=== PATIENT | male | born 1995 | race Hispanic/Latino ===

== ENCOUNTER 2018-04-20 09:27 | Emergency (ER) | payer BC, SELFPAY ==
--- OUTSIDE RECORDS SUMMARY | 2018-04-20 09:29 | XMS REPORT ---
:1995 Author Organization [facility] Address [facility] Joshi [address] [place] [id number] Care Team Providers Name Role Phone Unavailable Unavailable Unavailable Problems This patient has no known problems. Allergies, Adverse Reactions, Alerts This patient has no known allergies or adverse reactions. Medications This patient has no known medications.
[2018-04-20 10:07] LABS: Absolute Lymphocytes (CBC) 2.8 K/uL (0.7-4.9); Absolute Monocytes 0.6 K/uL (0.1-1.3); Absolute Neutrophil 4.5 K/uL (1.8-8.0); Basophils % 0.4 % (0-1.3); Eosinophils % 1.8 % (0-4.4); Hematocrit 44.7 % (39.6-49.0); Lymphocytes % 34.7 % (15.3-44.8); MPV 10.6 fL (7.6-11.3); RBC Red Blood Cell Count 5.07 M/uL (4.33-5.43)
[2018-04-20 10:10] LABS: Protime INR 1.07
[2018-04-20 10:25] LABS: ALT/SGPT 21 U/L (12-78); AST/SGOT 12 U/L (15-37); Albumin 4.4 g/dL (3.4-5.0); Alkaline Phosphatase 96 U/L (45-117); BUN Blood Urea Nitrogen 21 mg/dL (7-18); Bicarbonate 28 mmol/L (21-32); Bilirubin Direct 0.1 mg/dL (0-0.2); Bilirubin Total 0.6 mg/dL (0.2-1.0); Glucose Level 81 mg/dL (74-106); Magnesium 2.4 mg/dL (1.8-2.4); NT PRO-BNP 32 pg/mL (<125); Potassium 3.5 mmol/L (3.5-5.1); Sodium Level 139 mmol/L (136-145); Troponin (Emerg Dept Use Only) < 0.02 ng/mL (0.0-0.045)
--- NOTE | 2018-04-20 11:20 | RAD REPORT ---
EXAM DESCRIPTION: RAD - Chest Single View - 04/20/2018 10:28 am CLINICAL HISTORY: Left-sided chest pain COMPARISON: April 2016 TECHNIQUE: AP portable chest image was obtained 1019 hours . FINDINGS: Lungs are clear. Heart and vasculature are normal. No measurable pleural effusion and no p neumothorax. No acute bony abnormality seen. No acute aortic findings suspected. IMPRESSION: No acute cardiopulmonary process. No suspicious change from comparison.
--- NOTE | 2018-04-20 12:03 | ER ---
Nurse's Notes [facility] Name: Kendell Russo Age: 23 yrs Sex: Male : 1995 Arrival Date: 04/20/2018 Time: 09:31 Bed 8 Private MD: Diagnosis: Other chest pain;Chest pain, unspecified Presentation: 04/20 09:39 Presenting complaint: Patient states: L sided chest pain that radiates to back x 2 ph months, describes as sharp and stabbing, reports palpations, dizziness, and near syncope last night. Transition of care: patient was not received from another setting of care. Onset of symptoms was April 20, 2018. Risk Assessment: Do you want to hurt yourself or someone else? Patient reports no desire to harm self or others. Initial Sepsis Screen: Does the patient meet any 2 criteria? No. Patient's initial sepsis screen is negative. Does the patient have a suspected source of infection? No. Patient's initial sepsis screen is negative. Care prior to arrival: None. 09:39 Method Of Arrival: Ambulatory ph 09:39 Acuity: MARKOS 3 ph Historical: - Allergies: 09:41 jalapenos; ph 09:41 Morphine; ph - Home Meds: 09:41 None [Active]; ph - PMHx: 09:41 None; ph - PSHx: 09:41 Appendectomy; ph - Immunization history:: Adult Immunizations unknown. - Social history:: Smoking status: Patient uses tobacco products, smokes one-half pack cigarettes per day, vapes, Patient/guardian denies using alcohol, street drugs. - Ebola Screening: : No symptoms or risks identified at this time. Screenin:41 Abuse screen: Denies threats or abuse. Denies injuries from another. Nutritional sv screening: No deficits noted. Tuberculosis screening: No symptoms or risk factors identified. Fall Risk None identified. Assessment: 09:35 General: Appears in no apparent distress. comfortable, slender, well developed, sv Behavior is calm, cooperative, appropriate for age. General: Denies drinking energy drinks, pt stated that he used to smoke 1 ppd and decreased to 4 cigarettes' within the last 2 weeks. Pain: Complains of pain in anterior aspect of left upper chest Pain radiates to back Quality of pain is described as sharp, Pain began "months ago" Is intermittent. Neuro: Level of Consciousness is awake, alert, obeys commands, Oriented to person, place, time, situation, Moves all extremities. Full function Gait is steady, Speech is normal. Cardiovascular: Heart tones S1 S2 present Patient's skin is warm and dry. Pulses are 3+ in right radial artery and left radial artery Rhythm is sinus bradycardia. Respiratory: Airway is patent Respiratory effort is even, unlabored, Respiratory pattern is regular, symmetrical, Breath sounds are clear bilaterally. Derm: Skin is pink, warm \\T\\ dry. 10:08 Reassessment: Patient appears in no apparent distress at this time. No changes from previously documented assessment. Patient and/or family updated on plan of care and expected duration. Pain level reassessed. Patient is alert, oriented x 3, equal unlabored respirations, skin warm/dry/pink. Vital Signs: 09:40 BP 121 / 58; Pulse 51; Resp 18; Temp 97.8; Pulse Ox 100% on R/A; Weight 68.04 kg; ph Height 6 ft. 1 in. (185.42 cm); Pain 6/10; 10:08 BP 124 / 87; Pulse 53; Resp 16; Pulse Ox 99% ; sv 11:19 BP 111 / 71; Pulse 55; Resp 14; Pulse Ox 97% ; sv 09:40 Body Mass Index 19.79 (68.04 kg, 185.42 cm) ph ED Course: 09:31 Patient arrived in ED. mr 09:40 Deena Murguia, RN is Primary Nurse. sv 09:40 Jovan Nava MD is Attending Physician. kdr 09:40 Triage completed. ph 09:40 Arm band placed on Patient placed in an exam room, on a stretcher. sv 09:41 Patient has correct armband on for positive identification. Placed in gown. Bed in low sv position. Call light in reach. Adult w/ patient. athletic monitor on. Pulse ox on. NIBP on. Door closed. Head of bed elevated. 09:47 ED physician to see patient. sv 09:48 EKG done, by hydrological technical officer. reviewed by Jovan Nava MD. sm3 09:54 Initial lab(s) drawn, by ut, sent to lab. Inserted saline lock: 20 gauge in right sv antecubital area, using aseptic technique. Blood collected. Flushed right antecubital with 5 ml normal saline. Patient maintains SpO2 saturation greater than 95% on room air. 09:57 Awaiting for x-ray. sv 09:58 Basic Metabolic Panel Sent. sv 10:12 X-ray(s) taken. sv 10:21 X-ray completed. Portable x-ray completed in exam room. Patient tolerated procedure sg4 well. 10:28 XRAY Chest (1 view) In Process Unspecified. EDMS 11:20 Awaiting radiology results. sv 12:58 No provider procedures requiring assistance completed. IV discontinued, intact, ss bleeding controlled, No redness/swelling at site. Pressure dressing applied. Administered Medications: No medications were administered Outcome: 12:02 Discharge ordered by . kdr 12:58 Discharged to home ambulatory, with significant other. ss 12:58 Condition: good 12:58 Discharge instructions given to patient, family, Instructed on discharge instructions, follow up and referral plans. medication usage, Demonstrated understanding of instructions, follow-up care, medications, Prescriptions given X 2. 12:58 Patient left the ED. ss Signatures: Dispatcher [employer] EDDeena Del Valle RN RN Jovan Nava MD MD kdr Rivera, Mary mr Janneth Valenzuela RN RN ss Trinidad Richards RN RN Caroline Castillo 3 Roselia Dupont sg4 Corrections: (The following items were deleted from the chart) 09:46 09:35 Pain: Complains of pain in anterior aspect of left upper chest Pain does not sv radiate. Quality of pain is described as sharp, Pain began "months ago" Is intermittent, sv
--- NOTE | 2018-04-20 12:03 | EDPHYS ---
Physician Documentation [facility] Name: Kendell Russo Age: 23 yrs Sex: Male : 1995 Arrival Date: 04/20/2018 Time: 09:31 Bed 8 Private MD: ED Physician Jovan Nava HPI: 04/20 10:02 This 23 yrs old Male presents to ER via Ambulatory with complaints of Chest kdr Pain. 10:02 The patient or guardian reports chest pain that is located primarily in the substernal kdr area, anterior chest wall, left. The pain radiates to back. Associated signs and symptoms: Pertinent positives: dizziness, lightheadedness, nausea, near-syncope, shortness of breath, Pertinent negatives: cough, diaphoresis, headache, lower extremity pain, lower extremity swelling, palpitations, recent travel, syncope, vomiting. The chest pain is described as aching, sharp. Duration: The patient or guardian reports multiple episodes, that are intermittent, that wax and wane, with no pattern. Historical: - Allergies: 09:41 jalapenos; ph 09:41 Morphine; ph - Home Meds: 09:41 None [Active]; ph - PMHx: 09:41 None; ph - PSHx: 09:41 Appendectomy; ph - Immunization history:: Adult Immunizations unknown. - Social history:: Smoking status: Patient uses tobacco products, smokes one-half pack cigarettes per day, vapes, Patient/guardian denies using alcohol, street drugs. - Ebola Screening: : No symptoms or risks identified at this time. ROS: 10:10 Constitutional: Negative for fever, chills, and weight loss, Eyes: Negative for injury, kdr pain, redness, and discharge, Neck: Negative for injury, pain, and swelling, Respiratory: Negative for shortness of breath, cough, wheezing, and pleuritic chest pain, Abdomen/GI: Negative for abdominal pain, nausea, vomiting, diarrhea, and constipation, Back: Negative for injury and pain, : Negative for injury, bleeding, discharge, and swelling, Skin: Negative for injury, rash, and discoloration, Neuro: Negative for headache, weakness, numbness, tingling, and seizure activity. Psych: Negative for depression, anxiety, suicide ideation, homicidal ideation, and hallucinations, Allergy/Immunology: Negative for hives, rash, and allergies, Endocrine: Negative for neck swelling, polydipsia, polyuria, polyphagia, and marked weight changes, Hematologic/Lymphatic: Negative for swollen nodes, abnormal bleeding, and unusual bruising. 10:10 Cardiovascular: Positive for chest pain, edema, orthopnea, palpitations. Exam: 10:10 Constitutional: This is a well developed, well nourished patient who is awake, alert, kdr and in no acute distress. Head/Face: Normocephalic, atraumatic. Eyes: Pupils equal round and reactive to light, extra-ocular motions intact. Lids and lashes normal. Conjunctiva and sclera are non-icteric and not injected. Cornea within normal limits. Periorbital areas with no swelling, redness, or edema. Neck: Trachea midline, no thyromegaly or masses palpated, and no cervical lymphadenopathy. Supple, full range of motion without nuchal rigidity, or vertebral point tenderness. No Meningismus. Chest/axilla: Normal chest wall appearance and motion. Nontender with no deformity. No lesions are appreciated. Cardiovascular: Regular rate and rhythm with a normal S1 and S2. No gallops, murmurs, or rubs. Normal PMI, no JVD. No pulse deficits. Respiratory: Lungs have equal breath sounds bilaterally, clear to auscultation and percussion. No rales, rhonchi or wheezes noted. No increased work of breathing, no retractions or nasal flaring. Abdomen/GI: Soft, non-tender, with normal bowel sounds. No distension or tympany. No guarding or rebound. No evidence of tenderness throughout. Back: No spinal tenderness. No costovertebral tenderness. Full range of motion. Skin: Warm, dry with normal turgor. Normal color with no rashes, no lesions, and no evidence of cellulitis. MS/ Extremity: Pulses equal, no cyanosis. Neurovascular intact. Full, normal range of motion. Neuro: Awake and alert, GCS 15, oriented to person, place, time, and situation. Cranial nerves II-XII grossly intact. Motor strength 5/5 in all extremities. Sensory grossly intact. Cerebellar exam normal. Normal gait. Psych: Awake, alert, with orientation to person, place and time. Behavior, mood, and affect are within normal limits. Vital Signs: 09:40 BP 121 / 58; Pulse 51; Resp 18; Temp 97.8; Pulse Ox 100% on R/A; Weight 68.04 kg; ph Height 6 ft. 1 in. (185.42 cm); Pain 6/10; 10:08 BP 124 / 87; Pulse 53; Resp 16; Pulse Ox 99% ; sv 11:19 BP 111 / 71; Pulse 55; Resp 14; Pulse Ox 97% ; sv 09:40 Body Mass Index 19.79 (68.04 kg, 185.42 cm) ph MDM: 10:10 Data reviewed: vital signs, nurses notes, lab test result(s), EKG, radiologic studies. kdr Counseling: I had a detailed discussion with the patient and/or guardian regarding: the historical points, exam findings, and any diagnostic results supporting the discharge/admit diagnosis, lab results, radiology results. 12:02 Patient medically screened. kdr 04/20 09:44 Order name: Basic Metabolic Panel kdr 04/20 09:44 Order name: CBC with Diff; Complete Time: 10:51 kdr 04/20 09:44 Order name: LFT's; Complete Time: 10:51 kdr 04/20 09:44 Order name: Magnesium; Complete Time: 10:51 kdr 04/20 09:44 Order name: NT PRO-BNP; Complete Time: 10:51 kdr 04/20 09:44 Order name: PT-INR; Complete Time: 10:51 kdr 04/20 09:40 Order name: EKG; Complete Time: 09:40 sv 04/20 09:40 Order name: EKG - Nurse/Tech; Complete Time: 09:40 sv 04/20 09:44 Order name: Troponin (emerg Dept Use Only); Complete Time: 10:51 kdr 04/20 09:44 Order name: XRAY Chest (1 view); Complete Time: 12:01 kdr 04/20 09:44 Order name: Cardiac monitoring; Complete Time: 09:46 kdr 04/20 09:44 Order name: IV Saline Lock; Complete Time: 09:58 kdr 04/20 09:44 Order name: Labs collected and sent; Complete Time: 09:58 kdr 04/20 09:44 Order name: Basic Metabolic Panel; Complete Time: 10:51 EDMS 04/20 09:44 Order name: O2 Per Protocol; Complete Time: 09:46 kdr 04/20 09:44 Order name: O2 Sat Monitoring; Complete Time: 09:46 kdr Administered Medications: No medications were administered Disposition: 04/20/18 12:02 Discharged to Home. Impression: Other chest pain, Chest pain, unspecified. - Condition is Stable. - Discharge Instructions: Chest Wall Pain, [id number], Nonspecific Chest Pain, [id number]. - Prescriptions for Ibuprofen 800 mg Oral Tablet - take 1 tablet by ORAL route every 12 hours As needed take with food; 20 tablet. Tramadol 50 mg Oral Tablet - take 1 tablet by ORAL route every 8 hours as needed; 12 tablet. - Medication Reconciliation Form, Thank You Letter, Prescription Opioid Use form. - Follow up: Private Physician; When: 2 - 3 days; Reason: If symptoms return, Further diagnostic work-up, Recheck today's complaints, Continuance of care, Re-evaluation by your physician. - Problem is an ongoing problem. - Symptoms have improved. Signatures: Dispatcher [employer] Deena Cano RN RN Jovan Nava MD MD [facility] Janneth Valenzuela RN RN ss Trinidad Richards RN RN ph Corrections: (The following items were deleted from the chart) 12:58 12:02 04/20/2018 12:02 Discharged to Home. Impression: Other chest pain; Chest pain, ss unspecified. Condition is Stable. Forms are Medication Reconciliation Form, Thank You Letter, Antibiotic Education, Prescription Opioid Use. Follow up: Private Physician; When: 2 - 3 days; Reason: If symptoms return, Further diagnostic work-up, Recheck today's complaints, Continuance of care, Re-evaluation by your physician. Problem is an ongoing problem. Symptoms have improved. kdr
--- NOTE | 2018-04-20 12:43 | EKG ---
Test Date: 2018-04-20 Test Time: 09:40:43 Vice President Process: WILLIAM MEASUREMENT RESULTS: Intervals: Rate: 49 KS: 142 QRSD: 98 QT: 430 QTc: 388 [place]: P: 36 KS: 142 QRS: 91 T: 67 INTERPRETIVE STATEMENTS: Sinus bradycardia Rightward axis Borderline ECG Compared to ECG 05/15/2016 11:36:19 Sinus rhythm no longer present Electronically Signed On 04-20-18 12:38:07 DIGESTER CAPPER by Saúl Vinson
== END 2018-04-20 12:58 | disposition home or self-care (01) ==
LOC: ER 09:27
DX: R07.9 Chest pain, unspecified (principal); F17.210 Nicotine dependence, cigarettes, uncomplicated
CPT/HCPCS: 36415; 71045; 80048; 80076; 83735; 83880; 84484; 85025; 85610; 93005; 99285

== ENCOUNTER 2018-06-16 22:55 | Emergency (ER) | payer BC ==
--- OUTSIDE RECORDS SUMMARY | 2018-06-16 22:56 | XMS REPORT ---
:1995 [facility] Address [address] [place] [address] Dr. Joshi [address] [place] [id number] Care Team Providers Name Role Phone Unavailable Unavailable Unavailable Problems This patient has no known problems. Allergies, Adverse Reactions, Alerts This patient has no known allergies or adverse reactions. Medications This patient has no known medications.
[2018-06-16 23:32] LABS: Absolute Lymphocytes (CBC) 1.9 K/uL (0.7-4.9); Absolute Monocytes 0.5 K/uL (0.1-1.3); Absolute Neutrophil 4.9 K/uL (1.8-8.0); Basophils % 0.5 % (0-1.3); Eosinophils % 1.1 % (0-4.4); Hematocrit 46.1 % (39.6-49.0); Lymphocytes % 26.1 % (15.3-44.8); MPV 10.1 fL (7.6-11.3); Monocytes % 6.7 % (3.3-12.3); RBC Red Blood Cell Count 5.25 M/uL (4.33-5.43)
[2018-06-16] MEDS ORDERED: LORazepam 2 MG/ML VIAL ONE (23:32)
[2018-06-17 00:01] LABS: BUN Blood Urea Nitrogen 9 mg/dL (7-18); Bicarbonate 27 mmol/L (21-32); Glucose Level 99 mg/dL (74-106); Magnesium 2.2 mg/dL (1.8-2.4); Potassium 3.3 mmol/L (3.5-5.1); Sodium Level 144 mmol/L (136-145)
--- NOTE | 2018-06-17 00:31 | ER ---
Nurse's Notes [facility] Name: Shaan Russo Age: 23 yrs Sex: Male : 1995 Arrival Date: 06/16/2018 Time: 22:56 Bed 18 Private MD: Diagnosis: Dizziness and giddiness;Paresthesia of skin Presentation: 06/16 22:56 Presenting complaint: Patient states: dizziness intermittently x 2 days, ears feel tl2 muffled at times. 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 Denies any changes with palpitations or chronic pain. Transition of care: patient was not received from another setting of care. Onset of symptoms was June 14, 2018. Risk Assessment: Do you want to hurt yourself or someone else? Patient reports no desire to harm self or others. Initial Sepsis Screen: Does the patient meet any 2 criteria? No. Patient's initial sepsis screen is negative. Does the patient have a suspected source of infection? No. Patient's initial sepsis screen is negative. Care prior to arrival: None. 22:56 Method Of Arrival: EMS: [facility] tl2 22:56 Acuity: MARKOS 3 tl2 Triage Assessment: 22:59 General: Appears in no apparent distress. uncomfortable, Behavior is cooperative, tl2 appropriate for age, anxious. Pain: Denies pain. Neuro: Level of Consciousness is awake, alert, obeys commands, Oriented to person, place, time, situation. Cardiovascular: Reports palpitations, Denies chest pain. Respiratory: Airway is patent Respiratory effort is even, unlabored, Respiratory pattern is regular, symmetrical. GI: No signs and/or symptoms were reported involving the gastrointestinal system. : No signs and/or symptoms were reported regarding the genitourinary system. Derm: Skin is pink, warm \T\ dry. Historical: - Allergies: 22:59 Morphine; tl2 - Home Meds: 22:59 None [Active]; tl2 - PMHx: 22:59 palpitations (being monitored by trucking supervisor); tl2 - PSHx: 22:59 Appendectomy; tl2 - Immunization history:: Adult Immunizations up to date. - Social history:: Smoking status: Patient/guardian denies using tobacco. - Ebola Screening: : No symptoms or risks identified at this time. Screenin:00 Abuse screen: Denies threats or abuse. Nutritional screening: No deficits noted. tl2 Tuberculosis screening: No symptoms or risk factors identified. Fall Risk None identified. Assessment: 23:00 General: see triage assessment. tl2 23:38 Reassessment: Patient appears in no apparent distress at this time. Patient and/or tl2 family updated on plan of care and expected duration. Pain level reassessed. Patient is alert, oriented x 3, equal unlabored respirations, skin warm/dry/pink. pt returned from CT. 06/17 00:53 Reassessment: Patient appears in no apparent distress at this time. Patient and/or tl2 family updated on plan of care and expected duration. Pain level reassessed. Patient is alert, oriented x 3, equal unlabored respirations, skin warm/dry/pink. pt and family verbalized understanding of discharge instructions, need for follow up, and prescription usage Patient states feeling better. Vital Signs: 06/16 22:59 BP 138 / 75; Pulse 70; Resp 18; Temp 98.5(O); Pulse Ox 100% on R/A; Weight 71.67 kg; tl2 Height 6 ft. 1 in. (185.42 cm); Pain 1/10; 23:51 BP 116 / 67; Pulse 59; Resp 18; Pulse Ox 97% on R/A; tl2 22:59 Body Mass Index 20.85 (71.67 kg, 185.42 cm) tl2 ED Course: 22:56 Patient arrived in ED. tl2 22:56 Arnol Weller PA is [facility]. jr8 22:56 Damion Gamez MD is Attending Physician. jr8 22:58 Triage completed. tl2 22:59 Arm band placed on right wrist. tl2 23:00 Patient has correct armband on for positive identification. Bed in low position. Call tl2 light in reach. Side rails up X 1. Adult w/ patient. 23:18 Belkis Kaminski RN is Primary Nurse. tl2 23:18 Maintain EMS IV. Dressing intact. Good blood return noted. Site clean \T\ dry. Gauge \T\ tl 2 site: 18 g R AC. 23:47 CT Head Brain wo Cont In Process Unspecified. EDMS 06/17 00:00 CT completed. Patient tolerated procedure well. Patient moved to CT via wheelchair. Patient moved back from CT. 00:29 Charles Silevira MD is Referral Physician. jr8 00:51 No provider procedures requiring assistance completed. IV discontinued, intact, jb4 bleeding controlled. Administered Medications: 06/16 23:26 Drug: Ativan 1 mg Route: IVP; Site: right antecubital; tl2 06/17 00:00 Follow up: Response: No adverse reaction; Marked relief of symptoms tl2 Outcome: 00:30 Discharge ordered by . jr8 00:51 Discharged to home via wheelchair, with family. jb4 00:51 Condition: stable 00:51 Discharge instructions given to family, significant other, Instructed on discharge instructions, follow up and referral plans. medication usage, Demonstrated understanding of instructions, follow-up care, medications, Prescriptions given X 1. 00:55 Patient left the ED. tl2 Signatures: Dispatcher [employer] EDMS Bimal Ricks Josh, PA PA jr8 Belkis Kaminski, RN RN tl2 Burton Crespo, RN RN jb4
--- NOTE | 2018-06-17 00:31 | EDPHYS ---
Physician Documentation [facility] Name: Shaan Russo Age: 23 yrs Sex: Male : 1995 Arrival Date: 06/16/2018 Time: 22:56 Bed 18 Private MD: ED Physician Damion Gamez HPI: 06/16 23:37 This 23 yrs old Male presents to ER via EMS with complaints of Dizziness. jr8 23:37 Onset: The symptoms/episode began/occurred acutely, 2 day(s) ago, and became worse. jr8 Context: occurred at home, occurred while the patient was at rest, just prior to the episode the patient experienced numbness. Modifying factors: The symptoms are alleviated by nothing, the symptoms are aggravated by nothing. Associated signs and symptoms: Pertinent positives: nausea, numbness. Severity of symptoms: At their worst the symptoms were moderate in the emergency department the symptoms have improved. Patient's baseline: Neuro: alert and fully oriented, Motor: no deficits, Ambulation: walks without assistance, Speech: normal. The patient has not experienced similar symptoms in the past. The patient has not recently seen a physician. 23:37 Patient stated that he felt like he would have numbness to face and head and then feel jr8 very dizzy and near syncopal like. Stated that at points he would feel numb throughout his body as well. Denies CP or shortness of breath . 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 - Social history:: Smoking status: Patient/guardian denies using tobacco. - Ebola Screening: : No symptoms or risks identified at this time. ROS: 23:37 Eyes: Negative for injury, pain, redness, and discharge, ENT: Negative for injury, jr8 pain, and discharge, Neck: Negative for injury, pain, and swelling, Cardiovascular: Negative for chest pain, palpitations, and edema, Respiratory: Negative for shortness of breath, cough, wheezing, and pleuritic chest pain, Back: Negative for injury and pain, MS/Extremity: Negative for injury and deformity, Skin: Negative for injury, rash, and discoloration. 23:37 Abdomen/GI: Positive for nausea, Negative for abdominal pain, vomiting, diarrhea, constipation, abdominal cramps, abdominal distension. 23:37 Neuro: Positive for dizziness, numbness, visual changes. Exam: 23:37 Eyes: Pupils equal round and reactive to light, extra-ocular motions intact. Lids and jr8 lashes normal. Conjunctiva and sclera are non-icteric and not injected. Cornea within normal limits. Periorbital areas with no swelling, redness, or edema. ENT: Nares patent. No nasal discharge, no septal abnormalities noted. Tympanic membranes are normal and external auditory canals are clear. Oropharynx with no redness, swelling, or masses, exudates, or evidence of obstruction, uvula midline. Mucous membranes moist. Neck: Trachea midline, no thyromegaly or masses palpated, and no cervical lymphadenopathy. Supple, full range of motion without nuchal rigidity, or vertebral point tenderness. No Meningismus. Cardiovascular: Regular rate and rhythm with a normal S1 and S2. No gallops, murmurs, or rubs. Normal PMI, no JVD. No pulse deficits. Respiratory: Lungs have equal breath sounds bilaterally, clear to auscultation and percussion. No rales, rhonchi or wheezes noted. No increased work of breathing, no retractions or nasal flaring. Abdomen/GI: Soft, non-tender, with normal bowel sounds. No distension or tympany. No guarding or rebound. No evidence of tenderness throughout. Back: No spinal tenderness. No costovertebral tenderness. Full range of motion. Skin: Warm, dry with normal turgor. Normal color with no rashes, no lesions, and no evidence of cellulitis. MS/ Extremity: Pulses equal, no cyanosis. Neurovascular intact. Full, normal range of motion. Neuro: Awake and alert, GCS 15, oriented to person, place, time, and situation. Cranial nerves II-XII grossly intact. Motor strength 5/5 in all extremities. Sensory grossly intact. Cerebellar exam normal. Normal gait. Vital Signs: 22:59 BP 138 / 75; Pulse 70; Resp 18; Temp 98.5(O); Pulse Ox 100% on R/A; Weight 71.67 kg; tl2 Height 6 ft. 1 in. (185.42 cm); Pain 1/10; 23:51 BP 116 / 67; Pulse 59; Resp 18; Pulse Ox 97% on R/A; tl2 22:59 Body Mass Index 20.85 (71.67 kg, 185.42 cm) tl2 MDM: 22:56 Patient medically screened. 8 06/17 00:29 Data reviewed: vital signs, nurses notes, lab test result(s), EKG, radiologic studies, 8 CT scan, and as a result, I will discharge patient. Data interpreted: Pulse oximetry: on room air is 97 %. Interpretation: normal. Counseling: I had a detailed discussion with the patient and/or guardian regarding: the historical points, exam findings, and any diagnostic results supporting the discharge/admit diagnosis, lab results, radiology results, the need for outpatient follow up, a neurologist, to return to the emergency department if symptoms worsen or persist or if there are any questions or concerns that arise at home. Response to treatment: the patient's symptoms have resolved after treatment. 06/16 23:16 Order name: CBC with Diff; Complete Time: 23:37 [facility] 06/16 23:16 Order name: Basic Metabolic Panel; Complete Time: 00:03 [facility] 06/16 23:16 Order name: TSH; Complete Time: 00:03 [facility] 06/16 23:16 Order name: Magnesium; Complete Time: 00:03 [facility] 06/16 23:16 Order name: CT Head Brain wo Cont 8 06/16 23:16 Order name: EKG - Nurse/Tech; Complete Time: 23:19 8 06/16 23:16 Order name: IV; Complete Time: 23:19 [facility] Administered Medications: 06/16 23:26 Drug: Ativan 1 mg Route: IVP; Site: right antecubital; tl2 06/17 00:00 Follow up: Response: No adverse reaction; Marked relief of symptoms tl2 Disposition: 06:10 Co-signature as Attending Physician, Damion Gamez MD I agree with the assessment and 4 plan of care. Disposition: 06/17/18 00:30 Discharged to Home. Impression: Dizziness and giddiness, Paresthesia of skin. - Condition is Stable. - Discharge Instructions: Panic Attacks, Dizziness, Paresthesia, Social Anxiety Disorder, Generalized Anxiety Disorder. - Prescriptions for Hydroxyzine HCl 50 mg Oral Tablet - take 1 tablet by ORAL route every 8 hours As needed; 20 tablet. - Medication Reconciliation Form, Thank You Letter, Antibiotic Education, Prescription Opioid Use, Work release form form. - Follow up: Charles Silveira MD; When: 1 week; Reason: Recheck today's complaints, Continuance of care, Re-evaluation by your physician. - Problem is new. - Symptoms have improved. Signatures: Dispatcher [employer] EDMS Arnol Weller PA PA jr8 Belkis Kaminski RN RN tl2 Damion Gamez MD MD tw4 Corrections: (The following items were deleted from the chart) 00:55 00:30 06/17/2018 00:30 Discharged to Home. Impression: Dizziness and giddiness; tl2 Paresthesia of skin. Condition is Stable. Forms are Medication Reconciliation Form, Thank You Letter, Antibiotic Education, Prescription Opioid Use. Follow up: Charles Silveira; When: 1 week; Reason: Recheck today's complaints, Continuance of care, Re-evaluation by your physician. Problem is new. Symptoms have improved. jr8
--- NOTE | 2018-06-17 08:44 | EKG ---
Test Date: 2018-06-16 Test Time: 23:19:57 Gripper Attacher: CASS MEASUREMENT RESULTS: Intervals: Rate: 70 WV: 134 QRSD: 102 QT: 386 QTc: 416 Heron: P: 15 WV: 134 QRS: 95 T: 53 INTERPRETIVE STATEMENTS: Normal sinus rhythm with sinus arrhythmia Rightward axis Nonspecific ST abnormality Abnormal ECG Compared to ECG 04/20/2018 09:40:43 ST (T wave) deviation now present Sinus bradycardia no longer present Electronically Signed On 06-17-18 08:43:33 MARKETING/SALES PERSON by Chris Lance
--- NOTE | 2018-06-17 10:47 | RAD REPORT ---
EXAM DESCRIPTION: CT - Head Brain Wo Cont - 06/17/2018 4:37 am CLINICAL HISTORY: Dizziness. COMPARISON: None. TECHNIQUE: CT scan of the brain without IV contrast. This exam was performed according to our depa rtmental dose-optimization program, which includes automated exposure control, adjustment of the mA a nd/or kV according to patient size and/or use of iterative reconstruction technique. FINDINGS: The ventricles, cisterns, and sulci are unremarkable. No focal white matter lesions are se en. No evidence of acute infarction, intracranial hemorrhage, extra-axial fluid collection, or midlin e shift. No air-fluid levels are seen in the paranasal sinuses to suggest acute sinusitis. No depress ed skull fracture. IMPRESSION: No acute intracranial findings. Electronically signed by: Sharif Salazar MD 06/16/2018 11:53 PM BOOKING MANAGER Due to temporary technical issues with the PACS/Fluency reporting system, reports are being signed by the in house radiologist as a courtesy to ensure prompt reporting. The interpreting radiologist is f ully responsible for the content of the report.
== END 2018-06-17 00:55 | disposition home or self-care (01) ==
LOC: ER 22:55
DX: R20.2 Paresthesia of skin (principal); Z88.5 Allergy status to narcotic agent
CPT/HCPCS: 36415; 70450; 80048; 83735; 84443; 85025; 93005; 96374; 99284

== ENCOUNTER 2018-08-20 23:31 | Emergency (ER) | payer BC ==
--- OUTSIDE RECORDS SUMMARY | 2018-08-20 23:34 | XMS REPORT ---
:1995 [facility] Address [address] [place] [address] Dr. Joshi [address] [place] [id number] Care Team Providers Name Role Phone Unavailable Unavailable Unavailable Problems This patient has no known problems. Allergies, Adverse Reactions, Alerts This patient has no known allergies or adverse reactions. Medications This patient has no known medications.
[2018-08-21] MEDS ORDERED: NA CHLORIDE 0.9% 1,000 ML ONE (00:58)
[2018-08-21 01:19] LABS: Absolute Lymphocytes (CBC) 1.8 K/uL (0.7-4.9); Absolute Monocytes 0.4 K/uL (0.1-1.3); Absolute Neutrophil 8.4 K/uL (1.8-8.0); Basophils % 0.3 % (0-1.3); Eosinophils % 0.6 % (0-4.4); Hematocrit 47.5 % (39.6-49.0); MPV 10.8 fL (7.6-11.3); Monocytes % 4.1 % (3.3-12.3); RBC Red Blood Cell Count 5.39 M/uL (4.33-5.43)
[2018-08-21 01:20] LABS: Protime INR 1.02
[2018-08-21 01:32] LABS: Barbiturates NEGATIVE (NEGATIVE); Benzodiazepines NEGATIVE (NEGATIVE); Cocaine NEGATIVE (NEGATIVE); METHAMPHETAM NEGATIVE (NEGATIVE); Methadone NEGATIVE (NEGATIVE); Opiates NEGATIVE (NEGATIVE); Phencyclidine NEGATIVE (NEGATIVE); THC Cannibis NEGATIVE (NEGATIVE)
[2018-08-21 01:33] LABS: ALT/SGPT 19 U/L (12-78); AST/SGOT 16 U/L (15-37); Albumin 5.1 g/dL (3.4-5.0); Alkaline Phosphatase 98 U/L (45-117); BUN Blood Urea Nitrogen 12 mg/dL (7-18); Bicarbonate 29 mmol/L (21-32); Bilirubin Direct 0.2 mg/dL (0-0.2); Bilirubin Total 0.8 mg/dL (0.2-1.0); Glucose Level 92 mg/dL (74-106); Magnesium 2.3 mg/dL (1.8-2.4); NT PRO-BNP 49 pg/mL (<125); Potassium 3.8 mmol/L (3.5-5.1); Protein, Total 8.1 g/dL (6.4-8.2); Sodium Level 142 mmol/L (136-145); Troponin (Emerg Dept Use Only) < 0.02 ng/mL (0.0-0.045)
--- NOTE | 2018-08-21 02:51 | EDPHYS ---
Physician Documentation [facility] Name: Shaan Russo Age: 23 yrs Sex: Male : 1995 Arrival Date: 08/20/2018 Time: 23:39 Bed 13 Private MD: ED Physician Guido Lane HPI: 08/21 00:15 This 23 yrs old Male presents to ER via Ambulatory with complaints of pasha Headache, ADDISON FEELING. 00:15 The patient complains of pain to the top of head, forehead, left side of the back of pasha head, left occipital area, left base of the skull, right frontal area, right side of the back of head, right occipital area and right base of the skull. The patient describes the headache as aching. Onset: The symptoms/episode began/occurred just prior to arrival. Associated signs and symptoms: Pertinent positives: dizziness. Severity of symptoms: At its worst the pain was mild, moderate, in the emergency department the pain is unchanged. Headache History: Denies prior headaches. The symptoms are alleviated by nothing. the symptoms are aggravated by nothing. The patient has not experienced similar symptoms in the past. 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 - Social history:: Smoking status: Patient uses tobacco products, denies chronic smoking, but will smoke occasionally. - Ebola Screening: : Patient negative for fever greater than or equal to 101.5 degrees Fahrenheit, and additional compatible Ebola Virus Disease symptoms Patient denies exposure to infectious person Patient denies travel to an Ebola-affected area in the 21 days before illness onset No symptoms or risks identified at this time. - Family history:: not pertinent. ROS: 08/21 00:15 Constitutional: Negative for fever, chills, and weight loss, Eyes: Negative for injury, pasha pain, redness, and discharge, ENT: Negative for injury, pain, and discharge, Neck: Negative for injury, pain, and swelling, Cardiovascular: Negative for chest pain, palpitations, and edema, Respiratory: Negative for shortness of breath, cough, wheezing, and pleuritic chest pain, Abdomen/GI: Negative for abdominal pain, nausea, vomiting, diarrhea, and constipation, Back: Negative for injury and pain, : Negative for injury, bleeding, discharge, and swelling, MS/Extremity: Negative for injury and deformity, Skin: Negative for injury, rash, and discoloration, Psych: Negative for depression, anxiety, suicide ideation, homicidal ideation, and hallucinations, Allergy/Immunology: Negative for hives, rash, and allergies, Endocrine: Negative for neck swelling, polydipsia, polyuria, polyphagia, and marked weight changes, Hematologic/Lymphatic: Negative for swollen nodes, abnormal bleeding, and unusual bruising. Neuro: Positive for headache. Exam: 00:15 Constitutional: This is a well developed, well nourished patient who is awake, alert, pasha and in no acute distress. Head/Face: Normocephalic, atraumatic. Eyes: Pupils equal round and reactive to light, extra-ocular motions intact. Lids and lashes normal. Conjunctiva and sclera are non-icteric and not injected. Cornea within normal limits. Periorbital areas with no swelling, redness, or edema. ENT: Nares patent. No nasal discharge, no septal abnormalities noted. Tympanic membranes are normal and external auditory canals are clear. Oropharynx with no redness, swelling, or masses, exudates, or evidence of obstruction, uvula midline. Mucous membranes moist. Neck: Trachea midline, no thyromegaly or masses palpated, and no cervical lymphadenopathy. Supple, full range of motion without nuchal rigidity, or vertebral point tenderness. No Meningismus. Chest/axilla: Normal chest wall appearance and motion. Nontender with no deformity. No lesions are appreciated. Cardiovascular: Regular rate and rhythm with a normal S1 and S2. No gallops, murmurs, or rubs. Normal PMI, no JVD. No pulse deficits. Respiratory: Lungs have equal breath sounds bilaterally, clear to auscultation and percussion. No rales, rhonchi or wheezes noted. No increased work of breathing, no retractions or nasal flaring. Abdomen/GI: Soft, non-tender, with normal bowel sounds. No distension or tympany. No guarding or rebound. No evidence of tenderness throughout. Back: No spinal tenderness. No costovertebral tenderness. Full range of motion. Male : Normal genitalia with no discharge or lesions. Skin: Warm, dry with normal turgor. Normal color with no rashes, no lesions, and no evidence of cellulitis. MS/ Extremity: Pulses equal, no cyanosis. Neurovascular intact. Full, normal range of motion. Neuro: Awake and alert, GCS 15, oriented to person, place, time, and situation. Cranial nerves II-XII grossly intact. Motor strength 5/5 in all extremities. Sensory grossly intact. Cerebellar exam normal. Normal gait. Psych: Awake, alert, with orientation to person, place and time. Behavior, mood, and affect are within normal limits. Vital Signs: 08/20 23:44 BP 116 / 77; Pulse 72; Resp 18; Temp 98.8(O); Pulse Ox 96% on R/A; Weight 68.04 kg (R); ed1 Height 6 ft. 1 in. (185.42 cm) (R); Pain 7/10; 08/21 01:00 BP 114 / 70; Pulse 54; Resp 16; Pulse Ox 100% on R/A; jb4 02:15 BP 120 / 75; Pulse 56; Resp 19; Pulse Ox 98% on R/A; jb4 03:06 BP 123 / 78; Pulse 61; Resp 16; Pulse Ox 100% on R/A; jb4 08/20 23:44 Body Mass Index 19.79 (68.04 kg, 185.42 cm) ed1 MDM: 00:02 Patient medically screened. [facility] 00:17 Data reviewed: vital signs, nurses notes, lab test result(s), EKG, radiologic studies. [facility] 08/21 00:15 Order name: Basic Metabolic Panel; Complete Time: 02: [facility] 08/21 00:15 Order name: CBC with Diff; Complete Time: 02: [facility] 08/21 00:15 Order name: LFT's; Complete Time: 02: [facility] 08/21 00:15 Order name: Magnesium; Complete Time: 02: [facility] 08/21 00:15 Order name: NT PRO-BNP; Complete Time: 02:06 [facility] 08/21 00:15 Order name: PT-INR; Complete Time: 02:06 [facility] 08/21 00:15 Order name: Troponin (emerg Dept Use Only); Complete Time: 02: [facility] 08/21 00:15 Order name: XRAY Chest (1 view) [facility] 08/21 00:15 Order name: EKG; Complete Time: 00:16 [facility] 08/21 00:15 Order name: Cardiac monitoring; Complete Time: 00:46 [facility] 08/21 00:15 Order name: CT Head Angio [facility] 08/21 00:15 Order name: UDS; Complete Time: 02:06 [facility] 08/21 01:24 Order name: Urine Dipstick--Ancillary (enter results) cm6 08/21 00:15 Order name: EKG - Nurse/Tech; Complete Time: 00:43 [facility] 08/21 00:15 Order name: IV Saline Lock; Complete Time: 01:07 [facility] 08/21 00:15 Order name: Labs collected and sent; Complete Time: 01:07 [facility] 08/21 00:15 Order name: O2 Per Protocol; Complete Time: 00:46 [facility] 08/21 00:15 Order name: O2 Sat Monitoring; Complete Time: 00:46 [facility] 08/21 00:15 Order name: Urine Dipstick-Ancillary (obtain specimen); Complete Time: 01:08 [facility] Administered Medications: 00:45 Drug: NS 0.9% 1000 ml Route: IV; Rate: 1 bolus; Site: right antecubital; jb4 01:35 Follow up: Response: No adverse reaction; IV Status: Completed infusion jb4 Disposition: 08/21/18 02:50 Discharged to Home. Impression: Headache. - Condition is Stable. - Discharge Instructions: General Headache Without Cause, General Headache Without Cause, [id number]. - Prescriptions for Fioricet with Codeine [id number] [id number] mg Oral capsule - take 1 capsule by ORAL route every 4 hours as needed not to exceed 6 capsules per 24hrs; 20 capsule. - Medication Reconciliation Form, Thank You Letter, Antibiotic Education, Prescription Opioid Use form. - Follow up: Private Physician; When: 2 - 3 days; Reason: Recheck today's complaints, Continuance of care, Re-evaluation by your physician. Follow up: Aaron Macdonald; When: 2 - 3 days; Reason: Recheck today's complaints, Re-evaluation by your physician. - Problem is new. - Symptoms have improved. Signatures: Dispatcher [employer] EDMS Guido Lane MD MD cha Riggs, Erika, RN RN ed1 Burton Crespo RN RN jb4 Corrections: (The following items were deleted from the chart) 00:16 00:15 Family history: pertinent for pasha pasha 03:09 02:50 08/21/2018 02:50 Discharged to Home. Impression: Headache. Condition is Stable. jb4 Discharge Instructions: General Headache Without Cause, General Headache Without Cause, [id number]. Prescriptions for Fioricet with Codeine [id number] mg Oral capsule - take 1 capsule by ORAL route every 4 hours as needed not to exceed 6 capsules per 24hrs; 20 capsule. and Forms are Medication Reconciliation Form, Thank You Letter, Antibiotic Education, Prescription Opioid Use. Follow up: Private Physician; When: 2 - 3 days; Reason: Recheck today's complaints, Continuance of care, Re-evaluation by your physician. Follow up: Aaron Macdonald; When: 2 - 3 days; Reason: Recheck today's complaints, Re-evaluation by your physician. Problem is new. Symptoms have improved. pasha
--- NOTE | 2018-08-21 02:51 | ER ---
Nurse's Notes [facility] Name: Shaan Russo Age: 23 yrs Sex: Male : 1995 Arrival Date: 08/20/2018 Time: 23:39 Bed 13 Private MD: Diagnosis: Headache Presentation: 08/20 23:41 Presenting complaint: Patient states: I have been having headaches but today it got ed1 worse and I have tingling left hand and left foot. Transition of care: patient was not received from another setting of care. Onset of symptoms was August 18, 2018. Risk Assessment: Do you want to hurt yourself or someone else? Patient reports no desire to harm self or others. Initial Sepsis Screen: Does the patient meet any 2 criteria? No. Patient's initial sepsis screen is negative. Does the patient have a suspected source of infection? No. Patient's initial sepsis screen is negative. Care prior to arrival: Medication(s) given: Excedrine. 23:41 Method Of Arrival: Ambulatory ed1 23:41 Acuity: MARKOS 3 ed1 Triage Assessment: 23:44 Headache History: The patient has had previous headaches and this one is different than ed1 previous episodes. General: Appears in no apparent distress. Behavior is calm, cooperative. Pain: Complains of pain in left parietal area Pain currently is 7 out of 10 on a pain scale. Pain began 2-3 days ago. Also complains of no other associated symptoms. Neuro: Level of Consciousness is awake, alert, obeys commands, Oriented to person, place, time, situation, Pony Trimmer are equal bilaterally Reports numbness in left hand and left foot. 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 - Social history:: Smoking status: Patient uses tobacco products, denies chronic smoking, but will smoke occasionally. - Ebola Screening: : Patient negative for fever greater than or equal to 101.5 degrees Fahrenheit, and additional compatible Ebola Virus Disease symptoms Patient denies exposure to infectious person Patient denies travel to an Ebola-affected area in the 21 days before illness onset No symptoms or risks identified at this time. - Family history:: not pertinent. Screenin/04 00:00 Abuse screen: Denies threats or abuse. Nutritional screening: No deficits noted. jb4 Tuberculosis screening: No symptoms or risk factors identified. Fall Risk IV access (20 points). Assessment: 00:00 General: Appears in no apparent distress. comfortable, Behavior is calm, cooperative, jb4 appropriate for age, PT reports feeling a pressure pain in his head and a "karate chop sensation" to the left side of his head when he extends his neck.. Pain: Complains of pain in head, neck Pain does not radiate. Pain currently is 7 out of 10 on a pain scale. Quality of pain is described as pressure, stabbing, throbbing, pulsating, Pain began 2-3 months ago. Is intermittent. Neuro: Level of Consciousness is awake, alert, obeys commands, Oriented to person, place, time, situation. Cardiovascular: Patient's skin is warm and dry. Respiratory: Airway is patent Respiratory effort is even, unlabored, Respiratory pattern is regular, symmetrical. GI: No signs and/or symptoms were reported involving the gastrointestinal system. : No signs and/or symptoms were reported regarding the genitourinary system. EENT: No signs and/or symptoms were reported regarding the EENT system. Derm: Skin is intact, Skin is pink, warm \\T\\ dry. Musculoskeletal: Circulation, motion, and sensation intact. 01:00 Reassessment: Patient appears in no apparent distress at this time. Patient and/or jb4 family updated on plan of care and expected duration. Pain level reassessed. Patient is alert, oriented x 3, equal unlabored respirations, skin warm/dry/pink. 02:00 Reassessment: Patient appears in no apparent distress at this time. Patient and/or jb4 family updated on plan of care and expected duration. Pain level reassessed. Patient is alert, oriented x 3, equal unlabored respirations, skin warm/dry/pink. 03:06 Reassessment: Patient appears in no apparent distress at this time. Patient and/or jb4 family updated on plan of care and expected duration. Pain level reassessed. Patient is alert, oriented x 3, equal unlabored respirations, skin warm/dry/pink. Vital Signs: 08/20 23:44 BP 116 / 77; Pulse 72; Resp 18; Temp 98.8(O); Pulse Ox 96% on R/A; Weight 68.04 kg (R); ed1 Height 6 ft. 1 in. (185.42 cm) (R); Pain 7/10; 05 01:00 BP 114 / 70; Pulse 54; Resp 16; Pulse Ox 100% on R/A; jb4 02:15 BP 120 / 75; Pulse 56; Resp 19; Pulse Ox 98% on R/A; jb4 03:06 BP 123 / 78; Pulse 61; Resp 16; Pulse Ox 100% on R/A; jb4 08/20 23:44 Body Mass Index 19.79 (68.04 kg, 185.42 cm) ed1 ED Course: 08/20 23:39 Patient arrived in ED. es 23:43 Triage completed. ed1 23:44 Arm band placed on right wrist. ed1 23:51 Burton Crespo, LALA is Primary Nurse. jb4 08/21 00:00 Patient has correct armband on for positive identification. Bed in low position. Call jb4 light in reach. Side rails up X 1. tricot knitting machine operator on. Pulse ox on. NIBP on. 00:[address] MD is Attending Physician. pasha 00:30 XRAY Chest (1 view) In Process Unspecified. EDMS 00:30 X-ray completed. Portable x-ray completed in exam room. Patient tolerated procedure kp1 well. 00:30 Initial lab(s) drawn, by ED staff, sent to lab. Inserted saline lock: 20 gauge in right jb4 antecubital area, using aseptic technique. Blood collected. 00:50 Radiology exam delayed due to lab results not completed at this time. (BUN/Creatinine). vm2 01:06 Radiology exam delayed due to lab results not completed at this time. (BUN/Creatinine). kw1 01:32 Radiology exam delayed due to lab results not completed at this time. (BUN/Creatinine). az 02:08 CT Head Angio In Process Unspecified. EDMS 02:50 Aaron Macdonald MD is Referral Physician. pasha 03:06 No provider procedures requiring assistance completed. IV discontinued, intact, jb4 bleeding controlled, No redness/swelling at site. Administered Medications: 00:45 Drug: NS 0.9% 1000 ml Route: IV; Rate: 1 bolus; Site: right antecubital; jb4 01:35 Follow up: Response: No adverse reaction; IV Status: Completed infusion jb4 Outcome: 02:50 Discharge ordered by . pasha 03:08 Discharged to home ambulatory. jb4 03:08 Condition: stable 03:08 Discharge instructions given to patient, Instructed on discharge instructions, follow up and referral plans. medication usage, Demonstrated understanding of instructions, follow-up care, medications, Prescriptions given X 1. 03:09 Patient left the ED. jb4 Signatures: Dispatcher [employer] EDGuido Benavidez MD MD cha Salyer, Isabela Engle RN RN ed1 Burton Crespo RN RN jb4 Mary Oquendo2 Krysten Almendarez 1 Suad Littlejohn 1 Ileana Reynolds Corrections: (The following items were deleted from the chart) 00:16 00:15 Family history: pertinent for pasha pak
[2018-08-21 03:00] LABS: Urine Blood NEGATIVE (NEG); Urine Glucose NEGATIVE (NEG); Urine Protein NEGATIVE (NEG)
--- NOTE | 2018-08-21 06:47 | EKG ---
Test Date: 2018-08-21 Test Time: 00:38:00 Travel Accommodations Rater: CASS MEASUREMENT RESULTS: Intervals: Rate: 48 NJ: 138 QRSD: 94 QT: 434 QTc: 387 [place]: P: 7 NJ: 138 QRS: 91 T: 50 INTERPRETIVE STATEMENTS: Sinus bradycardia Rightward axis Nonspecific ST abnormality Abnormal ECG Compared to ECG 06/16/2018 23:19:57 Sinus rhythm no longer present Sinus arrhythmia no longer present ST (T wave) deviation still present Electronically Signed On 08-21-18 06:46:12 CDT by Saúl Vinson
--- NOTE | 2018-08-21 10:03 | RAD REPORT ---
EXAM DESCRIPTION: Hellen Single View08/21/2018 12:30 am CLINICAL HISTORY: cough COMPARISON: April 2018 FINDINGS: The lungs appear clear of acute infiltrate. The heart is normal size IMPRESSION: No acute abnormalities displayed
--- NOTE | 2018-08-23 12:33 | RAD REPORT ---
EXAM DESCRIPTION: CT - Head angio - 08/21/2018 6:41 am CLINICAL HISTORY: The patient is 23 years old and is Male; HEADACHE TECHNIQUE: Axial computed tomography images of the head with intravenous contrast during the arteria l phase of enhancement. Sagittal and coronal reformatted images were created and reviewed. This C T exam was performed using one or more of the following dose reduction techniques: automated exposu re control, adjustment of the mA and/or kV according to patient size, and/or use of iterative reconst ruction technique. COMPARISON: CT head without contrast dated June 16, 2018. FINDINGS: RIGHT INTERNAL CAROTID ARTERY: No acute findings. Intracranial segment is patent with no significant stenosis. No aneurysm. RIGHT ANTERIOR CEREBRAL ARTERY: Unremarkable. No occlusion or significant stenosis. No aneurys m. RIGHT MIDDLE CEREBRAL ARTERY: Unremarkable. No occlusion or significant stenosis. No aneurysm. RIGHT POSTERIOR CEREBRAL ARTERY: Unremarkable. No occlusion or significant stenosis. No aneury sm. RIGHT VERTEBRAL ARTERY: Unremarkable as visualized. LEFT INTERNAL CAROTID ARTERY: No acute findings. Intracranial segment is patent with no signific ant stenosis. No aneurysm. LEFT ANTERIOR CEREBRAL ARTERY: Unremarkable. No occlusion or significant stenosis. No aneurysm . LEFT MIDDLE CEREBRAL ARTERY: Unremarkable. No occlusion or significant stenosis. No aneurysm. LEFT POSTERIOR CEREBRAL ARTERY: Unremarkable. No occlusion or significant stenosis. No aneurys m. LEFT VERTEBRAL ARTERY: Unremarkable as visualized. BASILAR ARTERY: Unremarkable. No occlusion or significant stenosis. No aneurysm. BRAIN: No territorial infarct or intracranial hemorrhage, extra-axial collection, mass effect, hyd rocephalus or herniation. BONES/JOINTS: No acute osseous abnormality. SINUSES: Paranasal sinuses are clear. MASTOID AIR CELLS: Mastoid air cells are well pneumatized. IMPRESSION: 1. No acute intracranial abnormality. 2. No large vessel occlusion or aneurysm. Electronically signed by: Dustin Cruz DO 08/21/2018 2:17 AM CDT Due to temporary technical issues with the PACS/Fluency reporting system, reports are being signed by the in house radiologist as a courtesy to ensure prompt reporting. The interpreting radiologist is f ully responsible for the content of the report.
== END 2018-08-21 03:09 | disposition home or self-care (01) ==
LOC: ER 23:31
DX: R51 Headache (principal); I34.1 Nonrheumatic mitral (valve) prolapse; Z72.0 Tobacco use; Z88.5 Allergy status to narcotic agent
CPT/HCPCS: 36415; 70496; 71045; 80048; 80076; 80307; 81003; 83735; 83880; 84484; 85025; 85610; 93005; 96360; 99284; J7030; Q9967

== ENCOUNTER 2021-11-10 13:57 | Emergency (ER) | payer SELFPAY ==
--- OUTSIDE RECORDS SUMMARY | 2021-11-10 14:00 | XMS REPORT | Continuity of Care Document ---
:1995 Author Organization [facility] t Address [address] [place] [address] Care Team Providers Name Role Phone DARREL ABDI Attending Clinician Unavailable DARREL ABDI Admitting Clinician Unavailable Problems This patient has no known problems. Allergies, Adverse Reactions, Alerts This patient has no known allergies or adverse reactions. Medications This patient has no known medications. Procedures This patient has no known procedures. Encounters Start End Encounter Admission Attending Care Care Encounter Source Date/Time Date/Time Type Type Clinicians Facility Department ID 2017-06-11 2017-06-11 Outpatient P DARREL ABDI [facility] [id number] 21:40:00 21:40:00 [facility] Results Test Description Test Time Test Comments Results Result Comments Source CBC with Differential 2017-06-11 22:51:00 Test Item Value Reference Range Interpretation Comme nts WBC (test code = WBC) 4.6 K/cumm 4.4-10.5 N RBC (test code = RBC) 4.81 M/cumm 4.10-5.70 N Hemoglobin (test code = HGB) 14.2 gm/dL 13.4-17.4 N Hematocrit (test code = HCT) 43.7 % 38.7-52.0 N MCV (test code = MCV) 90.8 fL 80-100 N MCH (test code = MCH) 29.4 pg 27.0-32.5 N MCHC (test code = MCHC) 32.4 g/dL 32.0-37.5 N RDW (test code = RDW) 12.8 % 11.5-14.5 N Platelet Count (test code = PLTCT) 116 K/cumm 140-440 L MPV (test code = MPV) 13.3 fL Diff Method (test code = DIFFM) Auto Neutrophil (test code = NEUT) 64.5 % 36-70 N Lymphocyte (test code = LYMPH) 23.4 % 12-44 N Monocyte (test code = MONO) 8.9 % 0-11 N Eosinophil (test code = EOS) 2.3 % 0-7 N Basophil (test code = BASO) 0.9 % 0-2 N Neutro Abs (test code = ANEUT) 3.0 K/cumm 1.6-7.4 N Lymph Abs (test code = ALYMPH) 1.1 K/cumm 0.5-4.6 N Webster Abs (test code = AMONO) 0.4 K/cumm 0.0-1.2 N Eos Abs (test code = AEOS) 0.11 K/cumm 0.00-0.74 N Baso Abs (test code = ABASO) 0.0 K/cumm 0.00-0.21 N
--- NOTE | 2021-11-10 16:01 | RAD REPORT ---
EXAM DESCRIPTION: RAD - Knee Left 3 View - 11/10/2021 3:53 pm CLINICAL HISTORY: PAIN COMPARISON: <Comparisons> FINDINGS: No acute fracture. No malalignment. No significant focal degenerative changes. IMPRESSION: No acute osseous abnormality involving the left knee.
--- NOTE | 2021-11-10 16:17 | ER ---
Nurse's Notes [facility] Name: Shaan Russo Age: 26 yrs Sex: Male : 1995 Arrival Date: 11/10/2021 Time: 13:59 Bed 14 Private MD: Diagnosis: Sprain of medial collateral ligament of left knee Presentation: 11/10 14:38 Chief complaint: Patient states: he was playing on a water slide yesterday when he ap3 injured his left knee. patient states he heard a loud pop come from his knee, followed by pain that has not let up. Coronavirus screen: At this time, the client does not indicate any symptoms associated with coronavirus-19. Ebola Screen: No symptoms or risks identified at this time. Initial Sepsis Screen: Does the patient meet any 2 criteria? No. Patient's initial sepsis screen is negative. Does the patient have a suspected source of infection? No. Patient's initial sepsis screen is negative. Risk Assessment: Do you want to hurt yourself or someone else? Patient reports no desire to harm self or others. Onset of symptoms was November 09, 2021. 14:38 Method Of Arrival: Ambulatory ap3 14:38 Acuity: MARKOS 4 ap3 Triage Assessment: 14:40 General: Appears uncomfortable, Behavior is calm, cooperative. Pain: Complains of pain ap3 in left knee Pain currently is 0 out of 10 on a pain scale. at worst was 6 out of 10 on a pain scale. Pain began suddenly, 1 day ago. Neuro: Level of Consciousness is awake, alert, obeys commands, Oriented to person, place, time, situation, Moves all extremities. Speech is normal. Cardiovascular: Patient's skin is warm and dry. Respiratory: Airway is patent Respiratory effort is even, unlabored, Respiratory pattern is regular, symmetrical. Musculoskeletal: Reports pain in left knee since yesterday. Injury Description:. 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 - Social history:: Smoking status: Reported history of juuling and/or vaping. Screenin:51 Abuse screen: Denies threats or abuse. Denies injuries from another. Nutritional eh3 screening: No deficits noted. Tuberculosis screening: No symptoms or risk factors identified. Fall Risk Gait- Impaired (20 pts.). Assessment: 14:51 Reassessment: No changes from previously documented assessment. See triage assessment.. eh3 General: Appears in no apparent distress. comfortable, Behavior is calm, cooperative, appropriate for age. Pain: Complains of pain in medial aspect of left knee and left knee Pain does not radiate. Pain began 1 day ago. Is intermittent, Alleviated by repositioning. Neuro: Level of Consciousness is awake, alert, obeys commands, Oriented to person, place, time, situation. Cardiovascular: Capillary refill < 3 seconds Patient's skin is warm and dry. Respiratory: Airway is patent Respiratory effort is even, unlabored. GI: No signs and/or symptoms were reported involving the gastrointestinal system. : No signs and/or symptoms were reported regarding the genitourinary system. EENT: No signs and/or symptoms were reported regarding the EENT system. Derm: No signs and/or symptoms reported regarding the dermatologic system. Musculoskeletal: Swelling present in medial aspect of left knee. Vital Signs: 14:38 BP 122 / 74; Pulse 63; Resp 17; Temp 98.9; Pulse Ox 100% ; Weight 72.57 kg; Height 6 ap3 ft. (182.88 cm); Pain 0/10; 14:51 BP 129 / 83; Pulse 69; Resp 18; Pulse Ox 99% on R/A; eh3 15:50 BP 133 / 64; Pulse 58; Resp 16; Pulse Ox 99% on R/A; eh3 14:38 Body Mass Index 21.70 (72.57 kg, 182.88 cm) ap3 ED Course: 13:59 Patient arrived in ED. mr 14:00 Guido Sorenson PA is PHCP. cp 14:00 Deena Metz is Attending Physician. cp 14:40 Triage completed. ap3 14:42 Arm band placed on right wrist. ap3 14:43 Beth Chavez, LALA is Primary Nurse. ld1 14:46 Maggie Richards is Primary Nurse. eh3 14:51 Patient has correct armband on for positive identification. Bed in low position. Call eh3 light in reach. Side rails up X2. 15:24 Primary Nurse role handed off by Beth Chavez, RN eh3 15:24 Maggie Richards is Primary Nurse. eh3 15:55 XRAY Knee LEFT 3 view In Process Unspecified. EDOR 16:16 Oskar Jensen MD is Referral Physician. cp 16:16 No provider procedures requiring assistance completed. eh3 16:16 Patient did not have IV access during this emergency room visit. eh3 16:44 Crutch training done. Knee immobilizer applied on left knee. eh3 Administered Medications: 15:03 Not Given (Patient Refused): Ibuprofen 800 mg PO once eh3 15:03 Not Given (Patient Refused): Hydrocodone-Acetaminophen (7.5 mg-325 mg) 1 tabs PO once; eh3 RASS on ADMIN: Combtv4, Very Agttd3, Agttd2, Rstlss1, AlertClm0, Drwsy-1, Lt Sdtn-2, Mod Sdtn-3, Dp Sdtn-4, UnArsble-5 Medication: 16:16 VIS not applicable for this client. eh3 Outcome: 16:17 Discharge ordered by . cp 16:44 Discharged to home with crutches. eh3 16:44 Condition: stable 16:44 Discharge instructions given to patient, significant other, Instructed on discharge instructions, follow up and referral plans. medication usage, Demonstrated understanding of instructions, follow-up care, medications. 16:45 Patient left the ED. 3 Signatures: Dispatcher [employer] [facility] Nikky Massey mr Guido Sorenson PA PA cp Kay Parra RN RN ap3 Beth Chavez, LALA RN ld1 Maggie Richards 3
--- NOTE | 2021-11-10 16:17 | EDPHYS ---
Physician Documentation [facility] Name: Shaan Russo Age: 26 yrs Sex: Male : 1995 Arrival Date: 11/10/2021 Time: 13:59 Bed 14 Private MD: ED Physician Deena Metz HPI: 11/10 15:00 This 26 yrs old Male presents to ER via Ambulatory with complaints of Knee cp Injury. 15:00 The patient presents with an injury, pain, that is acute. The complaints affect the cp medial aspect of left knee and left knee. Context: Patient reports he was sliding down water slide yesterday when left leg got caught and caused lower leg to laterally hyperextend at the knee. Onset: The symptoms/episode began/occurred yesterday. 15:00 Associated signs and symptoms: Pertinent positives: swelling, Pertinent negatives cp numbness. Treatment prior to arrival includes: no previous treatment. 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 - Social history:: Smoking status: Reported history of juuling and/or vaping. ROS: 15:05 Constitutional: Negative for body aches, chills, fever, poor PO intake. cp 15:05 Eyes: Negative for injury, pain, redness, and discharge. cp 15:05 Neck: Negative for pain with movement, pain at rest, stiffness. 15:05 Cardiovascular: Negative for chest pain, palpitations. 15:05 Respiratory: Negative for cough, shortness of breath, wheezing. 15:05 Back: Negative for pain at rest, pain with movement. 15:05 MS/extremity: Positive for pain, swelling, tenderness, of the left knee, Negative for deformity, paresthesias. 15:05 Neuro: Negative for altered mental status, headache, weakness. cp 15:05 All other systems are negative. cp Exam: 15:10 Head/Face: Normocephalic, atraumatic. cp 15:10 Constitutional: The patient appears in no acute distress, alert, awake, non-toxic, well developed, well nourished, uncomfortable. 15:10 Neck: ROM/movement: is normal, is supple, without pain, no range of motions limitations.cp 15:10 Chest/axilla: Inspection: normal. 15:10 Cardiovascular: Rate: bradycardic. 15:10 Respiratory: the patient does not display signs of respiratory distress, Respirations: normal, no use of accessory muscles, no retractions. 15:10 Back: pain, is absent, ROM is normal. 15:10 Musculoskeletal/extremity: Extremities: grossly normal except: noted in the left knee: pain, painful ROM, medial side swelling and marked pain to palpation, laxity and pain elicited with lateral stress applied to left knee. Vital Signs: 14:38 BP 122 / 74; Pulse 63; Resp 17; Temp 98.9; Pulse Ox 100% ; Weight 72.57 kg; Height 6 ap3 ft. (182.88 cm); Pain 0/10; 14:51 BP 129 / 83; Pulse 69; Resp 18; Pulse Ox 99% on R/A; eh3 15:50 BP 133 / 64; Pulse 58; Resp 16; Pulse Ox 99% on R/A; eh3 14:38 Body Mass Index 21.70 (72.57 kg, 182.88 cm) ap3 Procedures: 16:20 Splinting: Splint applied to left knee using knee immobilizer, applied by nurse. cp Examined by me, post splint application: neurovascular intact, Patient tolerated well. MDM: 14:47 Patient medically screened. cp 15:00 Differential diagnosis: dislocation, closed fracture, ligament sprain, ligament rupture.cp 16:16 Data reviewed: vital signs, nurses notes, radiologic studies, plain films. cp 16:16 Test interpretation: by ED physician or midlevel provider: plain radiologic studies. cp 16:17 Counseling: I had a detailed discussion with the patient and/or guardian regarding: the cp historical points, exam findings, and any diagnostic results supporting the discharge/admit diagnosis, radiology results, the need for outpatient follow up, for definitive care, a orthopedic surgeon, to return to the emergency department if symptoms worsen or persist or if there are any questions or concerns that arise at home. Response to treatment: the patient's symptoms have mildly improved after treatment, and as a result, I will discharge patient. 11/10 14:41 Order name: XRAY Knee LEFT 3 view; Complete Time: 16:16 jl7 11/10 16:16 Interpretation: Report reviewed. cp 11/10 16:09 Order name: Crutches; Complete Time: 16:40 cp 11/10 16:09 Order name: Knee Immobilizer; Complete Time: 16:40 cp Administered Medications: 15:03 Not Given (Patient Refused): Ibuprofen 800 mg PO once eh3 15:03 Not Given (Patient Refused): Hydrocodone-Acetaminophen (7.5 mg-325 mg) 1 tabs PO once; eh3 RASS on ADMIN: Combtv4, Very Agttd3, Agttd2, Rstlss1, AlertClm0, Drwsy-1, Lt Sdtn-2, Mod Sdtn-3, Dp Sdtn-4, UnArsble-5 Disposition Summary: 11/10/21 16:17 Discharge Ordered Location: Home cp Problem: new cp Symptoms: have improved cp Condition: Stable cp Diagnosis - Sprain of medial collateral ligament of left knee cp Followup: cp - With: Oskar Jensen MD - When: 2 - 3 days - Reason: Recheck today's complaints Discharge Instructions: - Discharge Summary Sheet cp - Medial Collateral Knee Ligament Sprain cp Forms: - Medication Reconciliation Form cp - Thank You Letter cp - Antibiotic Education cp - Prescription Opioid Use cp - Work release form 3 Prescriptions: - Diclofenac Sodium 75 mg Oral Tablet Sustained Release - take 1 tablet by ORAL route 2 times per day; 30 tablet; Refills: 0, Product cp Selection Permitted Signatures: Dispatcher [employer] EDMS Guido Sorenson PA PA cp Kay Parra RN RN 3 Maggie Richards 3 Corrections: (The following items were deleted from the chart) 11/11 15:27 11/10 15:05 MS/extremity: Positive for pain, swelling, tenderness, of the left knee, cp Negative for cp 11/11 15:53 11/10 15:00 Context: Patient reports he was sliding down water slide yesterday when cp left leg got caught and caused lower leg to lateral hyperextend at the knee, cp 11/11 15:53 11/10 15:10 Musculoskeletal/extremity: Extremities: grossly normal except: noted in the cp left knee: pain, painful ROM, medial side swelling and marked pain to palpation, laxity and pain elicited with lateral stress applied to knee, cp
[2021-11-10 16:51] VITALS: TEMP 98.9
[2021-11-10 16:53] VITALS: O2SAT 99
[2021-11-10 16:55] VITALS: BP 133/64
== END 2021-11-10 16:45 | disposition home or self-care (01) ==
LOC: ER 13:57
DX: S83.412A Sprain of medial collateral ligament of left knee, initial encounter (principal); Z88.5 Allergy status to narcotic agent
CPT/HCPCS: 99283